=== PATIENT | female | born 1980 ===

== ENCOUNTER → 2023-09-10 09:41 | Outpatient (BNVA) | payer MEDICARE, SELFPAY | PROVIDERS: PCP Internal Medicine; Visit Provider Psychiatry & Neurology Neurology ==

== ENCOUNTER 2024-01-23 07:31 | Outpatient (REF) | payer OTHER, SELFPAY ==
--- NOTE | ~2024-01-23 | MR_ITS ---
EXAMINATION: MR BRAIN WITHOUT CONTRAST CLINICAL INFORMATION: Cognitive dysfunction. Right-sided headache. Decreased vision. COMPARISON: None available. TECHNIQUE: MRI of the brain was obtained using routine sequences without contrast. FINDINGS: No focal restricted diffusion is demonstrated to suggest acute or subacute cerebral ischemia. No evidence of acute or chronic hemorrhagic products on heme-sensitive imaging. Few nonspecific scattered foci of T2 FLAIR hyperintensity within the bifrontal lobes. No additional parenchymal signal abnormalities. The ventricles are normal in morphology and size. No abnormal mass effect. No midline shift. Mild expansion of the sella turcica with partial flattening of the pituitary gland. The suprasellar cistern remains widely patent. The cerebellar tonsils are mildly low lying, positioned 0.4 cm below the foramen magnum. The CSF space of the foramen magnum is maintained. Normal arterial and venous vascular flow voids are present. Normal, homogeneous marrow signal. Mild mucosal thickening of the paranasal sinuses. Moderate right-sided mastoid effusion. No signal abnormalities within the left sided mastoid. No demonstrated abnormalities of the orbits on limited evaluation. MR/MR head/brain wo con IMPRESSION: 1. No acute intracranial abnormalities. 2. Minimal nonspecific white matter changes. 3. Mild cerebellar tonsillar ectopia. 4. Moderate right-sided mastoid effusion. Electronically signed by: Chiki Pate DO 02/01/2024 05:49 PM EST
== END 2024-01-23 07:32 | disposition home or self-care (01) ==
LOC: HO.MRI 07:31
PROVIDERS: PCP Internal Medicine; Visit Provider Psychiatry & Neurology Neurology
DX: R41.89 Other symptoms and signs involving cognitive functions and awareness (principal)
CPT/HCPCS: 70551

== ENCOUNTER 2024-06-09 10:38 | Outpatient (RCR) | payer MEDICARE, MEDICAID, SELFPAY ==
--- NOTE | 2024-06-09 13:34 | MHC.SP.ADU ---
Referring provider: Quiana Reason for Referral: speech and hearing referral Type of Treatment: 45993 Clinical Swallowing Evaluation Date of Plan of Treatment: 06/09/24 Onset of Symptoms/Illness: 01/05/24 Date Treatment Started: 06/09/24 Medical Diagnosis: unspecified mental disorder due to known physiological condition Primary Speech Language Diagnosis: R41.841 Cognitive communication disorder History Obdulia is a 41 year old female referred to [facility] for cognitive testing by Dr. Hallie Araya. She has a strong maternal family history of Alzheimer?s disease and is concerned for dementia. She expresses concern for her memory including prospective memory (i.e. remembering upcoming appointments or plans) as well as walking out of the room and forgetting what she was doing. She reports concerns for safety such as walking out of the room while cooking something and forgetting to go back into the kitchen to finish. 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 She reports that her difficulty with memory is not negatively impacting her work generally, however sometimes she will have to ask a coworker for help. Obdulia expresses that she does believe that her personal and social life is impacted, largely with double booking plans or forgetting about plans. Obdulia?s medical history includes anxiety/depression and ADHD. Medical History: ADHD, anxiety, depression Respiratory Needs: Room Air Patient Orientation: Alert & Oriented x 4 Social History: Employment Status: [employer] Employed (currently on [employer]) Highest level of education obtained: some highschool Assistive Devices in use: Comment: Reports need for updated vision test Past Speech Language Therapy: None reported Other Therapies Seen in Current Calendar Year: None reported Swallowing History: Comments: No reported dysphagia concerns Reported Speech, Language, Cognition difficulties: Understanding Attention Reading Memory Cognition Problem Solving Assessment Tests of Cognition: RBANS Clinical Impression: Intact RBANS: Repeatable Battery for the Assessment of Neuropsychological Status The RBANS-Updated Form A assesses aspects of cognitive memory, language, and attention skills. The RBANS is considered a screening battery for cognitive function and is repeatable for the purpose of evaluating any changes in function. It is intended for use with adolescents and adults, ages 12 to 89 years. Composite domains assessed in this test are: Immediate Memory, Visuospatial/Constructional, Language, Attention, and Delayed Memory. Interpretation of test performance is based on normative data on individuals between ages 20-39. Yaneli?s performance is summarized below: IMMEDIATE MEMORY: This domain assesses the individual's ability to remember information immediately after it is presented.? List Learning Total Score: 27 Scaled Score: 10 Interpretation: Average Story Memory Total Score: 11 Scaled Score: 4 Interpretation: Borderline Immediate Memory Index Score: 83 Percentile: 13 Interpretation: Low Average VISUOSPATIAL/CONSTUCTIONAL: This domain assesses the individual's ability to perceive spatial relations and to construct a spatially accurate copy of a drawing. Figure Copy Total Score: 18 Scaled Score: 10 Interpretation: Average Line Orientation Total Score: 18 Percentile Group: 51-75 Interpretation: Average Visuospatial/Constructional Index Score: 105 Percentile: 63 Interpretation: Average LANGUAGE: This domain assesses the individual's ability to respond verbally to either naming or retrieving learned material. Picture Naming Total Score: 8 Percentile Group: 3-9 Interpretation: Borderline Semantic Fluency Total Score: 21 Scaled Score: 10 Interpretation: Average Language Index Score: 87 Percentile: 19 Interpretation: Low Average ATTENTION: This domain assesses the individual's capacity to remember and manipulate both visually and orally presented information in short-term memory storage. Digit Span Total Score: 9 Scaled Score: 8 Interpretation: Average Coding Total Score: 36 Scaled Score: 5 Interpretation: Borderline Attention Index Score: 79 Percentile: 8 Interpretation: Borderline DELAYED MEMORY: This domain assesses the individual's anterograde memory capacity. Low scores indicate difficulties with recognition and retrieval of information from long-term memory stores. List Recall Total Score: 7 Percentile Group: 51-75 Interpretation: Average List Recognition Total Score: 20 Percentile Group: 51-75 Interpretation: Average Story Recall Total Score: 6 Scaled Score: 5 Interpretation: Borderline Figure Recall Total Score: 16 Scaled Score: 11 Interpretation: Average Delayed Memory Index Score: 100 Percentile: 50 Interpretation: Average Sum of Index Scores: 454 Total Scale Score: 86 Percentile: 18 Interpretation: Low Average Kristi Adkins (1998). Repeatable Battery for the Assessment of Neuropsychological Status [Manual]. NABILA Awan: Emeli. Impressions and Recommendations Summary: Based on standardized testing using the RBANS on this date, a cognitive-linguistic deficit was not identified. As compared to other individuals age 40-49, Obdulia scored average or low average on most tasks. Obdulia scored ?borderline? on the ?Attention Index Score? as well as two subtests: attention-based ?Coding? subtest and immediate memory-based ?Story Memory? subtest. As Obdulia reports a diagnosis of ADHD, it is plausible that this is why she scored lower in attention-based tasks. Obdulia?s performance on the immediate memory tasks suggests that the strategy of repetition supports memory.? The more times a story or wordlist was repeated, the more information she recalled accurately. At this time speech therapy is not warranted, however it is recommended that Obdulia come in for evaluation in one year to monitor any changes or concerns with memory. Should any impending concerns arise before this time, it is recommended to discuss with the neurologist for an earlier re-referral. In the meantime it is recommended that Obdulia complete a full audiological evaluation to rule in/out hearing loss as hearing ability can affect cognitive functioning. ? Prognosis for Improvement: Good Recommendation for Speech Therapy: NA:Typical Evaluation Recommended Referrals to be Discussed with Primary Care Provider: Audiological Evaluation -It is recommended that Yaneli be referred for a full audiological evaluation to determine if there is a need for hearing aids or other auditory accommodations Patient Education: Completed: Yes Patient/Caregiver Education: Described Results of Evaluation Patient expressed understanding of evaluation Rescue Worker Clinican/Clinical Fellow: No Supervisory Statement: No Speech Language Pathologist: La Zeng M.A., CCC-CHIEF ENGINEER [employer]
== END 2024-06-09 14:40 | disposition home or self-care (01) ==
LOC: HO.SH 10:38
PROVIDERS: PCP Internal Medicine; Visit Provider Psychiatry & Neurology Neurology
DX: F09 Unspecified mental disorder due to known physiological condition (principal)